=== PATIENT | female | born 1970 | race Caucasian/White ===

== ENCOUNTER 2017-03-28 19:20 | Inpatient (IN) | payer MEDICAID ==
--- NOTE | 2017-03-28 19:51 | C.PDOC ---
History Of Present Illness 47 year old female presents to the ED with complaints of abdominal pain, nausea , vomiting, and diarrhea for two days. Patient notes one episode of vomiting and multiple episodes of diarrhea since the onset of symptoms. Patient denies any dysuria, hematuria, vaginal bleeding or discharge, ingestion of unusual foods, or sick contacts. Time Seen by Provider: 03/28/17 19:27 Chief Complaint (Nursing): Abdominal Pain History Per: Patient History/Exam Limitations: no limitations Onset/Duration Of Symptoms: Days Current Symptoms Are (Timing): Still Present Severity: Moderate Location Of Pain/Discomfort: Diffuse Quality Of Discomfort: "Pain" Associated Symptoms: Nausea, Vomiting, Diarrhea. denies: Fever, Chills Recent travel outside of the [place]: No Abnormal Vaginal Bleeding: No Past Medical History Reviewed: Historical Data, Nursing Documentation, Vital Signs Vital Signs: Last Vital Signs Temp 97.8 F 03/31/17 07:23 Pulse 71 03/31/17 07:23 Resp 20 03/31/17 07:23 BP 96/58 L 03/31/17 07:23 Pulse Ox 99 03/31/17 07:23 - Medical History PMH: No Chronic Diseases Surgical History: Family History: States: No Known Family Hx - Social History Hx Tobacco Use: No Hx Alcohol Use: No Hx Substance Use: No - Immunization History Hx Tetanus Toxoid Vaccination: No Hx Influenza Vaccination: No Hx Pneumococcal Vaccination: No Review Of Systems Except As Marked, All Systems Reviewed And Found Negative. Constitutional: Negative for: Fever, Chills Cardiovascular: Negative for: Chest Pain Respiratory: Negative for: Cough, Shortness of Breath Gastrointestinal: Positive for: Nausea, Vomiting, Abdominal Pain, Diarrhea Genitourinary: Negative for: Dysuria, Hematuria, Vaginal Discharge, Vaginal Bleeding Skin: Negative for: Rash Physical Exam - Physical Exam Appears: Well, Non-toxic, Other (mildly uncomfortable, anxious) Skin: Warm, Dry Eye(s): bilateral: Normal Inspection Oral Mucosa: Moist Neck: Supple Cardiovascular: Rhythm Regular Respiratory: Normal Breath Sounds, No Rales, No Rhonchi, No Wheezing Gastrointestinal/Abdominal: Bowel Sounds, Soft, Tenderness (mild diffuse TTP greatest at suprapubic area), No Distention, No Guarding, No Rebound, Other ((- ) McBurney's, (-) Rovsing's) Back: No CVA Tenderness Extremity: Normal ROM, No Tenderness Neurological/Psych: Oriented x3 ED Course And Treatment - Laboratory Results Result Diagrams: 03/31/17 06:53 03/31/17 06:53 Lab Interpretation: Abnormal (anemia, acidosis) O2 Sat by Pulse Oximetry: 98 (room air ) Pulse Ox Interpretation: Normal - CT Scan/US CT SCAN ABD/PELVIS Other Rad Studies (CT/US): Read By Radiologist, Radiology Report Reviewed CT/US Interpretation: Accession No. : [id number]. Patient Name / ID : TALON CAMARGO / [id number]. Exam Date : 03/28/2017 22:53:20 ( Approved ). Study Comment : Sex / Age : F / 47Y. Creator : ELENA DO. Dictator : Supervisor Slate Splitting : Revolving Field Assembler : ELENA DO. Approver2 : Report Date : 03/28 23:03:00. My Comment : . [email or web address]. [facility] Division of Radiology. [address] [place] [address]. Tel. no. [phone]. . . Patient Name: RAMAN HANLEY . Pt. Address: [address] [place] [address] Rec #: [id number]. [place] [address]: Nae Lozano DO Pt Phone: Order Location: [facility]. : 1970 Female Age: 47 Order #: [id number]. Reason for exam: nausea/vomiting/diarrhea, r/o colitis. . . . . . CT Scan. . . ABD PELVIS W/O PO OR IV CONT Exam Date: 03/28/17. . This imaging exam was performed at [facility]. EXAM: CT Abdomen and Pelvis Without Intravenous Contrast. . CLINICAL HISTORY: 47 years old, female; Pain; Abdominal pain; Additional info: Nausea/vomiting/ diarrhea, R/O colitis. . TECHNIQUE: Axial computed tomography images of the abdomen and pelvis without. intravenous contrast. This CT exam was performed using one or more of the. following dose reduction techniques: automated exposure control, adjustment of. the mA and/or kV according to patient size, and/or use of iterative. reconstruction technique. Coronal and sagittal reformatted images were created and reviewed. . COMPARISON: No relevant prior studies available. . . FINDINGS: Lower thorax: The bilateral lung bases are clear. . ABDOMEN: Liver: No acute findings. Gallbladder and bile ducts: No acute finding. No calcified stones. No. intra-extrahepatic biliary ductal dilation. Pancreas: Limited evaluation secondary to the lack of intravenous contrast. Spleen: No acute findings. Adrenals: No acute findings. Kidneys and ureters: No obstructing stones. No hydronephrosis. . . PELVIS : Bladder: No acute findings. Reproductive: No acute findings. Appendix: The appendix is not definitively visualized. . ABDOMEN and PELVIS: Stomach and bowel: Significant mural thickening with adjacent inflammatory. changes identified within the colon. Presacral inflammation is also detected,. findings which taken together suggest the presence of acute colitis, for which. clinical correlation is needed. Peritoneum: As above. Lymph nodes: Limited evaluation without intravenous contrast. Vasculature: No aortic aneurysm. Bones: No acute fracture. . IMPRESSION: Findings suggestive of a pancolitis , as detailed above. . Dictated By: Elena Do MD. Dictated Date/Time: 03/28/172302. Signed By: Elena Do MD. Date Signed: 03/28/172302. Transcribed By: [facility]. Transcribe Date/Time: 03/28/172302. CHAPITO/ANNAMARIA Progress Note: Blood work, UA, UPreg ordered and reviewed. Patient given IV Ns bolus x 2. Blood work showed CO2 16, left shift, and patient still having diarrhea - CT scan abd/pelvis ordered. CT scan shows pancolitis - IV Ciprofloxacin and IV flagyl ordered. - Physician Consult Information Physician Contacted: Sada Barragan Outcome Of Conversation: Discussed patient with Dr. Barragan, he agrees with admission for pancolitis, generalized weakness, left shift, acidosis. Medical Decision Making Medical Decision Making: differential diagnoses considered: colitis, diverticulitis, appendicitis, gastroenteritis, pyelonephritis, kidney stone, ovarian torsion, PID Disposition - Disposition Disposition: HOSPITALIZED Disposition Time: 23:26 Condition: FAIR - POA Present On Arrival: None - Clinical Impression Clinical Impression: Pancolitis, Generalized weakness, Acidosis, Hypokalemia - Scribe Statement The provider has reviewed the documentation as recorded by the Scribe Rufina Meeks All medical record entries made by the Scribe were at my direction and personally dictated by me. I have reviewed the chart and agree that the record accurately reflects my personal performance of the history, physical exam, medical decision making, and the department course for this patient. I have also personally directed, reviewed, and agree with the discharge instructions and disposition. Decision To Admit - Pt Status Changed To: Hospital Disposition Of: Inpatient - Admit Certification Admit to Inpatient:: After my assessment, the patient will require hospitalization for at least two midnights. This is because of the severity of symptoms shown, intensity of services needed, and/or the medical risk in this patient being treated as an outpatient. - InPatient: Physician Admission Certification:: see notes - . Bed Request Type: Regular Admitting Physician: Sada Barragan Patient Diagnosis: Pancolitis, Generalized weakness, Acidosis, Hypokalemia
[2017-03-28] MEDS ORDERED: Sodium Chloride 0.9% 1,000 ML IV ONE ×2 (20:04→21:06)
[2017-03-28] MEDS ORDERED: Sodium Chloride 0.9% 1,000 ML ONE ×2 (20:14→21:14)
[2017-03-28 20:29] LABS: CHLORIDE 93 mmol/L (98-107); POTASSIUM 3.5 mmol/L (3.6-5.2); SODIUM 132 mmol/L (132-148)
[2017-03-28 20:31] LABS: AST/SGOT 26 U/L (14-36); BASO % 0.2 % (0.0-2.0); BILIRUBIN,TOTAL 0.6 mg/dL (0.2-1.3); CARBON DIOXIDE 16 mmol/L (22-30); GFR AFRICAN-AMERICAN > 60; HEMATOCRIT 33.3 % (34.0-47.0); LYMPH % 10.3 % (20.0-40.0); MEAN CELL VOLUME 58.9 fL (81.0-99.0); MEAN CORPUSCULAR HEMOGLOBIN 17.6 pg (27.0-31.0); MEAN CORPUSCULAR HGB CONC 29.9 g/dL (33.0-37.0); MEAN PLATELET VOLUME 9.3 fL (7.2-11.7); MONO # 0.3 K/uL (0.0-0.8); MONO % 2.8 % (0.0-10.0); RED CELL DISTRIBUTION WIDTH 20.2 % (11.5-14.5); WHITE BLOOD COUNT 10.1 K/uL (4.8-10.8)
[2017-03-28 20:32] LABS: ALB/GLOB RATIO 1.6 (1.0-2.1); ALKALINE PHOSPHATASE 102 U/L (38-126); ALT/SGPT 22 U/L (9-52); BLOOD UREA NITROGEN 9 mg/dL (7-17); CALCIUM 9.5 mg/dl (8.6-10.4); GLUCOSE,RANDOM 106 mg/dL (65-105); TOTAL PROTEIN 9.5 g/dL (6.3-8.3)
[2017-03-28 21:29] LABS: VENOUS BLOOD GAS BASE EXCESS -6.4 mmol/L (0.0-2.0); VENOUS BLOOD GAS PCO2 19 mmHg (40-60); VENOUS BLOOD PH 7.49 (7.32-7.43)
--- NOTE | 2017-03-28 23:04 | CT ---
EXAM: CT Abdomen and Pelvis Without Intravenous Contrast CLINICAL HISTORY: 47 years old, female; Pain; Abdominal pain; Additional info: Nausea/vomiting/diarrhea, R/O colitis TECHNIQUE: Axial computed tomography images of the abdomen and pelvis without intravenous contrast. This CT exam was performed using one or more of the following dose reduction techniques: automated exposure control, adjustment of the mA and/or kV according to patient size, and/or use of iterative reconstruction technique. Coronal and sagittal reformatted images were created and reviewed. COMPARISON: No relevant prior studies available. FINDINGS: Lower thorax: The bilateral lung bases are clear. ABDOMEN: Liver: No acute findings Gallbladder and bile ducts: No acute finding. No calcified stones. No intra-extrahepatic biliary ductal dilation. Pancreas: Limited evaluation secondary to the lack of intravenous contrast. Spleen: No acute findings. Adrenals: No acute findings. Kidneys and ureters: No obstructing stones. No hydronephrosis. PELVIS: Bladder: No acute findings. Reproductive: No acute findings. Appendix: The appendix is not definitively visualized. ABDOMEN and PELVIS: Stomach and bowel: Significant mural thickening with adjacent inflammatory changes identified within the colon. Presacral inflammation is also detected, findings which taken together suggest the presence of acute colitis, for which clinical correlation is needed. Peritoneum: As above. Lymph nodes: Limited evaluation without intravenous contrast. Vasculature: No aortic aneurysm. Bones: No acute fracture. IMPRESSION: Findings suggestive of a pancolitis, as detailed above.
[2017-03-28] MEDS ORDERED: metroNIDAZOLE IV 500 mg/100 ml 500 MG/100 ML BAG IV STA (23:23)
[2017-03-28] MEDS ORDERED: Ciprofloxacin 400mg/200ml D5W 400 MG/200 ML BAG IV STA (23:23)
[2017-03-28] MEDS ORDERED: Potassium Chloride 20 mEq ER Tab PO STA (23:30)
[2017-03-28] MEDS ORDERED: metroNIDAZOLE IV 500 mg/100 ml 500 MG/100 ML BAG ONE (23:33)
[2017-03-28] MEDS ORDERED: Ciprofloxacin 400mg/200ml D5W 400 MG/200 ML BAG IVPB ONE (23:33)
[2017-03-28] MEDS ORDERED: Potassium Chloride 20 mEq ER Tab PO ONE (23:45)
[2017-03-29] MEDS: Sodium Chloride 0.9% 1,000 ML IV SCH ×2 (03:34→13:36)
[2017-03-29 08:58] LABS: URINE BACTERIA RARE (<OCC); URINE BILIRUBIN NEGATIVE (NEGATIVE); URINE BLOOD 1+ (NEGATIVE); URINE COLOR Yellow (YELLOW); URINE GLUCOSE (UA) NORMAL (Normal); URINE KETONE NEGATIVE (NEGATIVE); URINE LEUKOCYTE ESTERASE 1+ Leu/uL (Negative); URINE PROTEIN NEGATIVE (NEGATIVE); URINE UROBILINOGEN NORMAL mg/dL (0.2-1.0); WBC URINE 11 /hpf (0-5)
[2017-03-29 09:01] LABS: RBC URINE 8 /hpf (0-3)
[2017-03-29] MEDS ORDERED: Pneumococcal 23-Valent Vaccine IM ONE (11:20)
[2017-03-29] MEDS: Ciprofloxacin 400mg/200ml D5W 400 MG/200 ML BAG IVPB SCH ×2 (11:29→22:50)
[2017-03-29] MEDS: metroNIDAZOLE IV 500 mg/100 ml 500 MG/100 ML BAG IVPB SCH ×2 (13:33→21:46)
[2017-03-29 17:46] LABS: CHLORIDE 99 mmol/L (98-107); SODIUM 134 mmol/L (132-148)
[2017-03-29 17:47] LABS: POTASSIUM 3.3 mmol/L (3.6-5.2)
[2017-03-29 17:49] LABS: ALB/GLOB RATIO 1.1 (1.0-2.1); ALKALINE PHOSPHATASE 74 U/L (38-126); ALT/SGPT 20 U/L (9-52); AST/SGOT 29 U/L (14-36); BILIRUBIN,TOTAL 0.7 mg/dL (0.2-1.3); BLOOD UREA NITROGEN 9 mg/dL (7-17); CARBON DIOXIDE 18 mmol/L (22-30); GFR AFRICAN-AMERICAN > 60; GLUCOSE,RANDOM 109 mg/dL (65-105); TOTAL PROTEIN 7.5 g/dL (6.3-8.3)
[2017-03-29 17:50] LABS: CALCIUM 8.4 mg/dl (8.6-10.4)
[2017-03-29 17:52] LABS: HEMATOCRIT 29.2 % (34.0-47.0); MEAN CELL VOLUME 58.8 fL (81.0-99.0); MEAN CORPUSCULAR HEMOGLOBIN 17.7 pg (27.0-31.0); MEAN CORPUSCULAR HGB CONC 30.1 g/dL (33.0-37.0); MEAN PLATELET VOLUME 9.1 fL (7.2-11.7); RED CELL DISTRIBUTION WIDTH 20.5 % (11.5-14.5); WHITE BLOOD COUNT 6.8 K/uL (4.8-10.8)
[2017-03-29] MEDS: Potassium Ch 20mEq in D5-1/2NS 1,000 ML IV SCH (18:00)
[2017-03-29] MEDS: Vancomycin 125 MG/5 ML SOLN (ORAL/RECTAL) PO SCH (21:50)
[2017-03-30] MEDS: metroNIDAZOLE IV 500 mg/100 ml 500 MG/100 ML BAG IVPB SCH ×3 (05:29→21:34)
[2017-03-30] MEDS: Potassium Ch 20mEq in D5-1/2NS 1,000 ML IV SCH ×3 (05:30→21:36)
--- NOTE | 2017-03-30 07:24 | HP ---
The patient is a 47-year-old female in the hospital complaining of nausea, vomiting, weakness. The p atient came to the hospital, advised admission. The patient denies similar episodes in the past. PHYSICAL EXAMINATION: GENERAL: The patient is awake, alert, oriented. VITAL SIGNS: Temperature 98, pulse 90. HEENT: Within normal limits. NECK: Supple. CHEST: Symmetrical. HEART: Regular. ABDOMEN: Soft. EXTREMITIES: No edema. The patient suffers from colitis. The patient will get bedrest, supportive care. Sada Abad MD cc: [id number] TT: 03/29/2017 16:19:34 en
[2017-03-30] MEDS: Ciprofloxacin 400mg/200ml D5W 400 MG/200 ML BAG IVPB SCH ×2 (10:19→23:45)
[2017-03-30] MEDS: Vancomycin 125 MG/5 ML SOLN (ORAL/RECTAL) PO SCH ×4 (10:20→21:35)
[2017-03-30 11:47] LABS: BASO % 0.3 % (0.0-2.0); HEMATOCRIT 28.1 % (34.0-47.0); LYMPH # 0.6 K/uL (1.0-4.3); LYMPH % 9.3 % (20.0-40.0); MEAN CELL VOLUME 58.1 fL (81.0-99.0); MEAN CORPUSCULAR HEMOGLOBIN 17.9 pg (27.0-31.0); MEAN CORPUSCULAR HGB CONC 30.7 g/dL (33.0-37.0); MEAN PLATELET VOLUME 9.6 fL (7.2-11.7); MONO # 0.3 K/uL (0.0-0.8); MONO % 4.2 % (0.0-10.0); PLATELET COUNT 246 K/uL (130-400); RED CELL DISTRIBUTION WIDTH 20.6 % (11.5-14.5)
[2017-03-30 11:53] LABS: CHLORIDE 100 mmol/L (98-107)
[2017-03-30 11:54] LABS: POTASSIUM 3.2 mmol/L (3.6-5.2); SODIUM 133 mmol/L (132-148)
[2017-03-30 11:56] LABS: ALB/GLOB RATIO 1.1 (1.0-2.1); AST/SGOT 28 U/L (14-36); BILIRUBIN,TOTAL 0.5 mg/dL (0.2-1.3); BLOOD UREA NITROGEN 7 mg/dL (7-17); CARBON DIOXIDE 19 mmol/L (22-30); GFR AFRICAN-AMERICAN > 60; TOTAL PROTEIN 7.2 g/dL (6.3-8.3)
[2017-03-30 11:57] LABS: ALKALINE PHOSPHATASE 60 U/L (38-126); ALT/SGPT 22 U/L (9-52); CALCIUM 8.6 mg/dl (8.6-10.4); GLUCOSE,RANDOM 104 mg/dL (65-105)
[2017-03-30 12:38] LABS: NEUTROPHIL 80 % (50-75); TOTAL CELLS COUNTED 100
--- NOTE | 2017-03-30 12:50 | CP.PCM.CON ---
History of Present Illness - History of Present Illness History of Present Illness: 47 year old female presents to the ED with complaints of abdominal pain, nausea , vomiting, and diarrhea for two days. Patient notes one episode of vomiting and multiple episodes of diarrhea since the onset of symptoms. Patient denies any dysuria, hematuria, vaginal bleeding or discharge, ingestion of unusual foods, or sick contacts. CT shows severe vale colitis need GI eval r/o occult malignancy Surgical History: Family History: States: Unknown Family Hx Review of Systems - Constitutional Constitutional: As Per HPI, Malaise - EENT Eyes: absent: As Per HPI, Blind Spots, Blurred Vision, Change in Vision, Decreased Night Vision, Diplopia, Discharge, Dry Eye, Exophthalmos, Floaters, Irritation, Itchy Eyes, Loss of Peripheral Vision, Pain, Photophobia, Requires Corrective Lenses, Sees Flashes, Spots in Vision, Tunnel Vision, Other Visual Disturbances, Loss of Vision, Other Ears: absent: As Per HPI, Decreased Hearing, Ear Discharge, Ear Pain, Tinnitus, Abnormal Hearing, Disequilibrium, Dizziness, Other Nose/Mouth/Throat: absent: As Per HPI, Epistaxis, Nasal Congestion, Nasal Discharge, Nasal Obstruction, Nasal Trauma, Nose Pain, Post Nasal Drip, Sinus Pain, Sinus Pressure, Bleeding Gums, Change in Voice, Dental Pain, Dry Mouth, Dysphagia, Halitosis, Hoarsness, Lip Swelling, Mouth Lesions, Mouth Pain, Odynophagia, Sore Throat, Throat Swelling, Tongue Swelling, Facial Pain, Neck Pain, Neck Mass, Other - Breasts Breasts: absent: As Per HPI, Change in Shape, Mass, Pain, Nipple Discharge, Nipple Inversion, Skin Changes, Swelling, Other - Cardiovascular Cardiovascular: absent: As Per HPI, Acrocyanosis, Chest Pain, Chest Pain at Rest , Chest Pain with Activity, Claudication, Diaphoresis, Dyspnea, Dyspnea on Exertion, Edema, Irregular Heart Rhythm, Pain Radiating to Arm/Neck/Jaw, Leg Edema, Leg Ulcers, Lightheadedness, Orthopnea, Palpitations, Paroxysmal Nocturnal Dyspnea, Pedal Edema, Radiating Pain, Rapid Heart Rate, Slow Heart Rate, Syncope, Other - Respiratory Respiratory: absent: As Per HPI, Cough, Dyspnea, Hemoptysis, Dyspnea on Exertion , Wheezing, Snoring, Stridor, Pain on Inspiration, Chest Congestion, Excessive Mucous Production, Change in Mucous Color, Pain with Coughing, Other - Gastrointestinal Gastrointestinal: As Per HPI - Genitourinary Genitourinary: absent: As Per HPI, Change in Urinary Stream, Difficulty Urinating, Dysuria, Flank Pain, Hematuria, Pyuria, Nocturia, Urinary Incontinence, Urinary Frequency, Urinary Hesitance, Urinary Urgency, Voiding Freq/Small Amts, Freq UTI, Hx Renal/Bladder Calculi, Hx /Renal Surgery, Bladder Distension, Other - Reproductive: Female Reproductive:Female: absent: As Per HPI, Amenorrhea, Amenorrhea/ Control, Currently Menstual, Cycle <21 Days, Cycle >35 Days, Cycle Variable, Menses 1-7 Days, Menses >/= 8 Days, Menses Variable, Cycle > 4 Weeks Between, No Menses for 6 Months, Heavy Menses, Light Menses, Normal Menses, Spotting Between Cycles , S/P Hysterectomy, Menopausal, Post Menopausal, Premenarche, Abnormal Vaginal Bleeding, Dysmenorrhea, Dyspareunia, Genital Lesions, Genital Pruritis, Pelvic Pain, Prolapse Symptoms, Sexual Dysfunction, Vaginal Discharge, Vaginal Dryness , Vaginal Odor, Vaginal Pruritis, Other - Menstruation Menstruation: absent: As Per HPI, Amenorrhea, Amenorrhea/ Control, Currently Menstual, Cycle <21 Days, Cycle >35 Days, Cycle Variable, Menses 1-7 Days, Menses >/= 8 Days, Menses Variable, Cycle > 4 Weeks Between, No Menses for 6 Months, Heavy Menses, Light Menses, Normal Menses, Spotting Between Cycles , S/P Hysterectomy, Menopausal, Post Menopausal, Premenarche, Abnormal Vaginal Bleeding, Dysmenorrhea, Other - Musculoskeletal Musculoskeletal: absent: As Per HPI, Abnormal Gait, Arthralgias, Atrophy, Back Pain, Deformity, Joint Swelling, Limited Range of Motion, Loss of Height, Muscle Cramps, Muscle Weakness, Myalgias, Neck Pain, Numbness, Radiating Pain into Limb, Stiffness, Tingling, Other - Integumentary Integumentary: absent: As Per HPI, Acne, Alopecia, Bleeding Lesions, Change in Hair, Change in Nails, Change in Pigmentation, Changing Lesions, Dry Skin, Erythema, Furuncle, Hirsutism, Lesions, New Lesions, Non-Healing Lesions, Photosensitivity, Pruritus, Rash, Skin Pain, Skin Ulcer, Sores, Striae, Swelling , Unusual Bruising, Wounds, Jaundice, Other - Neurological Neurological: absent: As Per HPI, Abnormal Gait, Abnormal Hearing, Abnormal Movements, Abnormal Speech, Behavioral Changes, Burning Sensations, Confusion, Convulsions, Disequilibrium, Dizziness, Numbness, Focal Weakness, Frequent Falls , Headaches, Lack of Coordination, Loss of Vision, Memory Loss, Paresthesias, Radicular Pain, Restless Legs, Sensory Deficit, Syncope, Tingling, Tremor, Vertigo, Weakness, Other Visual Disturbances, Other - Psychiatric Psychiatric: absent: As Per HPI, Abnormal Sleep Pattern, Anhedonia, Anxiety, Auditory Hallucinations, Behavioral Changes, Change in Appetite, Change in Libido, Confusion, Depression, Difficulty Concentrating, Hallucinations, Homicidal Ideation, Hopelessness, Irritability, Memory Loss, Mood Swings, Panic Attacks, Paranoia, Suicidal Ideation, Visual Hallucinations, Tactile Hallucinations, Other - Endocrine Endocrine: absent: As Per HPI, Change in Body Appearance, Change in Libido, Cold Intolorance, Deepening of Voice, Excessive Sweating, Fatigue, Flushing, Heat Intolorance, Increase in Ring/Shoe/Hat Size, Palpitations, Polydipsia, Polyphagia, Polyuria, Other - Hematologic/Lymphatic Hematologic: absent: As Per HPI, Easy Bleeding, Easy Bruising, Lymphadenopathy, Other Past Patient History - Infectious Disease Hx of Infectious Diseases: None - Past Medical History & Family History Past Medical History?: Yes - Past Social History Smoking Status: Never Smoked - MUSCULOSKELETAL/RHEUMATOLOGICAL Hx Back Pain: Yes Hx Falls: No - PSYCHIATRIC Hx Substance Use: No - SURGICAL HISTORY Hx Surgeries: Yes Hx Section: Yes (1) - ANESTHESIA Hx Anesthesia: Yes Hx Anesthesia Reactions: No Hx Malignant Hyperthermia: No Has any member of the family had a problem w/ anesthesia?: No Meds Allergies/Adverse Reactions: Allergies Allergy/AdvReac Type Severity Reaction Status Date / Time No Known Allergies Allergy Verified 03/28/17 19:29 - Medications Medications: Current Medications Acetaminophen (Tylenol 325mg Tab) 650 mg PO Q6 PRN PRN Reason: pain Last Admin: 03/29/17 22:58 Dose: 650 mg Ciprofloxacin (Cipro 400mg/200ml Dsw) 400 mg in 200 mls @ 133 mls/hr IVPB Q12H [facility] Last Admin: 05/08/17 10:19 Dose: 133 mls/hr Metronidazole (Flagyl) 500 mg in 100 mls @ 100 mls/hr IVPB Q8 [facility] Last Admin: 03/30/17 05:29 Dose: 100 mls/hr Potassium Chloride/Dextrose/Sod Cl (Potassium Chl 20 Meq In D5-1/2ns) 1,000 mls @ 100 mls/hr IV .Q10H [facility] Last Admin: 03/30/17 05:30 Dose: Not Given Vancomycin HCl (Vancocin (Oral Or Rectal Use)) 250 mg PO QID [facility] Last Admin: 03/30/17 10:20 Dose: 250 mg Physical Exam - Constitutional Appears: Non-toxic, Chronically Ill - Head Exam Head Exam: NORMOCEPHALIC - Eye Exam Eye Exam: PERRL. absent: Scleral icterus - ENT Exam ENT Exam: Mucous Membranes Dry, Normal External Ear Exam - Respiratory Exam Respiratory Exam: Decreased Breath Sounds, Clear to Auscultation Bilateral - Cardiovascular Exam Cardiovascular Exam: REGULAR RHYTHM, +S1, +S2 - GI/Abdominal Exam GI & Abdominal Exam: Diminished Bowel Sounds, Soft. absent: Normal Bowel Sounds , Tenderness - Rectal Exam Rectal Exam: Deferred - Exam Exam: NORMAL INSPECTION - Extremities Exam Extremities exam: Negative for: pedal edema - Back Exam Back exam: absent: CVA tenderness (L), CVA tenderness (R) - Neurological Exam Neurological exam: Alert, CN II-XII Intact, Oriented x3, Reflexes Normal - Psychiatric Exam Psychiatric exam: Normal Mood - Skin Skin Exam: Dry Results - Vital Signs Recent Vital Signs: Last Vital Signs Temp 98.9 F 03/30/17 08:00 Pulse 78 03/30/17 08:00 Resp 20 03/30/17 08:00 BP 103/68 03/30/17 08:00 Pulse Ox 100 03/30/17 08:00 - Labs Result Diagrams: 03/30/17 11:33 03/30/17 11:33 Labs: Laboratory Results - last 24 hr 03/29/17 03/29/17 03/29/17 17:32 17:32 20:09 WBC 6.8 RBC 4.97 Hgb 8.8 L Hct 29.2 L MCV 58.8 L MCH 17.7 L MCHC 30.1 L RDW 20.5 H Plt Count 264 MPV 9.1 Neut % (Auto) Lymph % (Auto) Dod[place]idge % (Auto) Eos % (Auto) Baso % (Auto) Neut # Lymph # Doddridge # Eos # Baso # Neutrophils % (Manual) Band Neutrophils % Lymphocytes % (Manual) Monocytes % (Manual) Platelet Estimate Hypochromasia (manual) Anisocytosis (manual) Microcytosis (manual) Ovalocytes Sodium 134 Potassium 3.3 L Chloride 99 Carbon Dioxide 18 L Anion Gap 20 BUN 9 Creatinine 0.9 Est GFR ( Amer) > 60 Est GFR (Non-Af Amer) > 60 Random Glucose 109 H Calcium 8.4 L Total Bilirubin 0.7 AST 29 ALT 20 Alkaline Phosphatase 74 Total Protein 7.5 Albumin 4.0 Globulin 3.5 Albumin/Globulin Ratio 1.1 C. difficile Ag & Toxin Negative 03/30/17 03/30/17 11:33 11:33 WBC 6.0 RBC 4.83 Hgb 8.6 L Hct 28.1 L MCV 58.1 L MCH 17.9 L MCHC 30.7 L RDW 20.6 H Plt Count 246 MPV 9.6 Neut % (Auto) 86.2 H Lymph % (Auto) 9.3 L Doddridge % (Auto) 4.2 Eos % (Auto) 0.0 Baso % (Auto) 0.3 Neut # 5.1 Lymph # 0.6 L Doddridge # 0.3 Eos # 0.0 Baso # 0.0 Neutrophils % (Manual) 80 H Band Neutrophils % 8 H Lymphocytes % (Manual) 4 L Monocytes % (Manual) 8 Platelet Estimate Normal Hypochromasia (manual) Moderate Anisocytosis (manual) Moderate Microcytosis (manual) Moderate Ovalocytes Slight Sodium 133 Potassium 3.2 L Chloride 100 Carbon Dioxide 19 L Anion Gap 17 BUN 7 Creatinine 0.7 Est GFR ( Amer) > 60 Est GFR (Non-Af Amer) > 60 Random Glucose 104 Calcium 8.6 Total Bilirubin 0.5 AST 28 ALT 22 Alkaline Phosphatase 60 Total Protein 7.2 Albumin 3.8 Globulin 3.4 Albumin/Globulin Ratio 1.1 C. difficile Ag & Toxin Assessment & Plan (1) Anemia Status: Acute (2) Anemia Status: Acute (3) Acidosis Status: Acute (4) Hypokalemia Status: Acute (5) Pancolitis Status: Acute
[2017-03-30] MEDS ORDERED: Potassium Chloride 20 mEq ER Tab PO ONE (14:50)
--- NOTE | 2017-03-30 17:08 | CP.PCM.PN ---
Subjective - Date & Time of Evaluation Date of Evaluation: 03/30/17 Time of Evaluation: 10:00 - Subjective Subjective: PGY2 on medicine Dr. Barragan service: Pt seen and examined at bedside this morning. Pt has TMax 102.1 in past 24 hours. Pt reports multiple watery BM overnight that she lost count. Tolerating liquid diet. Patient also complains diffuse abdominal pain. Denied n/v. Objective - Vital Signs/Intake and Output Vital Signs (last 24 hours): Temp Pulse Resp BP Pulse Ox 98.5 F 86 20 95/59 L 98 03/30/17 15:00 03/30/17 15:00 03/30/17 15:00 03/30/17 15:00 03/30/17 15:00 Intake and Output: 03/30/17 03/30/17 06:59 18:59 Intake Total 920 1200 Balance 920 1200 - Medications Medications: Current Medications Acetaminophen (Tylenol 325mg Tab) 650 mg PO Q6 PRN PRN Reason: pain Last Admin: 03/29/17 22:58 Dose: 650 mg Ciprofloxacin (Cipro 400mg/200ml Dsw) 400 mg in 200 mls @ 133 mls/hr IVPB Q12H [facility] Last Admin: 03/30/17 10:19 Dose: 133 mls/hr Metronidazole (Flagyl) 500 mg in 100 mls @ 100 mls/hr IVPB Q8 [facility] Last Admin: 03/30/17 13:17 Dose: 100 mls/hr Potassium Chloride/Dextrose/Sod Cl (Potassium Chl 20 Meq In D5-1/2ns) 1,000 mls @ 100 mls/hr IV .Q10H [facility] Last Admin: 03/30/17 13:19 Dose: 100 mls/hr Vancomycin HCl (Vancocin (Oral Or Rectal Use)) 250 mg PO QID [facility] Last Admin: 03/30/17 13:21 Dose: 250 mg - Labs Labs: 03/30/17 11:33 03/30/17 11:33 - Constitutional Appears: Non-toxic, No Acute Distress - Head Exam Head Exam: NORMAL INSPECTION, NORMOCEPHALIC - Eye Exam Eye Exam: Normal appearance Pupil Exam: NORMAL ACCOMODATION - ENT Exam ENT Exam: Mucous Membranes Moist - Respiratory Exam Respiratory Exam: Clear to Ausculation Bilateral, NORMAL BREATHING PATTERN. absent: Rhonchi, Wheezes - Cardiovascular Exam Cardiovascular Exam: REGULAR RHYTHM, +S1, +S2. absent: Gallop, Rubs - GI/Abdominal Exam GI & Abdominal Exam: Guarding (mild), Tenderness (diffuse), Normal Bowel Sounds. absent: Rigid, Soft - Neurological Exam Neurological Exam: Alert, Awake, Oriented x3 - Psychiatric Exam Psychiatric exam: Normal Mood - Skin Skin Exam: Dry Assessment and Plan - Assessment and Plan (Free Text) Assessment: Abdominal pain Likely secondary to pancolitis per CT. Negative C.diff. ID Dr. Mireles consulted, help appreciated. GI Dr. Pizarro consulted, help appreciated. Cipro 400mg IV q12H started on 03/29. Flagyl 500mg IV q8H started on 03/29. Vancomycin 250mg PO QID started on 03/29. NPO per Dr. Pizarro for EGD tomorrow. F/U stool culture and parasite study. F/U FOBT. Hypokalemia 3.2 today. KCl 20meq in D5 1/2NS @ 100ml/hr. K-dur 40meq given once. F/U CMP AM. Prophylactic measure Protonix, SCD.
[2017-03-30 22:11] LABS: INR 1.3
[2017-03-31] MEDS: Potassium Ch 20mEq in D5-1/2NS 1,000 ML IV SCH ×2 (00:53→10:38)
[2017-03-31] MEDS: metroNIDAZOLE IV 500 mg/100 ml 500 MG/100 ML BAG IVPB SCH ×3 (05:25→21:29)
[2017-03-31 07:13] LABS: BASO % 0.4 % (0.0-2.0); EOS % 0.2 % (0.0-4.0); HEMATOCRIT 26.4 % (34.0-47.0); LYMPH # 1.1 K/uL (1.0-4.3); LYMPH % 29.7 % (20.0-40.0); MEAN CELL VOLUME 58.5 fL (81.0-99.0); MEAN CORPUSCULAR HEMOGLOBIN 17.8 pg (27.0-31.0); MEAN CORPUSCULAR HGB CONC 30.5 g/dL (33.0-37.0); MEAN PLATELET VOLUME 9.1 fL (7.2-11.7); MONO # 0.3 K/uL (0.0-0.8); MONO % 8.5 % (0.0-10.0); RED CELL DISTRIBUTION WIDTH 20.9 % (11.5-14.5); WHITE BLOOD COUNT 3.8 K/uL (4.8-10.8)
[2017-03-31 08:03] LABS: CHLORIDE 102 mmol/L (98-107); POTASSIUM 3.3 mmol/L (3.6-5.2); SODIUM 135 mmol/L (132-148)
[2017-03-31 08:05] LABS: GFR AFRICAN-AMERICAN > 60
[2017-03-31 08:06] LABS: ALB/GLOB RATIO 1.1 (1.0-2.1); ALKALINE PHOSPHATASE 57 U/L (38-126); ALT/SGPT 24 U/L (9-52); AST/SGOT 22 U/L (14-36); BILIRUBIN,TOTAL 0.4 mg/dL (0.2-1.3); BLOOD UREA NITROGEN 6 mg/dL (7-17); CARBON DIOXIDE 21 mmol/L (22-30); GLUCOSE,RANDOM 89 mg/dL (65-105); TOTAL PROTEIN 6.7 g/dL (6.3-8.3)
[2017-03-31 08:07] LABS: CALCIUM 8.3 mg/dl (8.6-10.4)
[2017-03-31] MEDS ORDERED: Propofol 10 mg/ml Inj (20 ML) ONE (10:55)
[2017-03-31] MEDS ORDERED: Phytonadione 10 mg/ml Inj (Adult) SC STA (11:03)
--- NOTE | 2017-03-31 11:04 | CP.PCM.PN ---
Subjective - Date & Time of Evaluation Date of Evaluation: 03/31/17 Time of Evaluation: 07:00 - Subjective Subjective: s/p egd dr gorman on board iv rx in progress Objective - Vital Signs/Intake and Output Vital Signs (last 24 hours): Temp Pulse Resp BP Pulse Ox 97.8 F 71 20 96/58 L 100 03/31/17 10:54 03/31/17 10:54 03/31/17 10:54 03/31/17 10:54 03/31/17 10:54 Intake and Output: 03/31/17 03/31/17 06:59 18:59 Intake Total 1200 850 Balance 1200 850 - Medications Medications: Current Medications Acetaminophen (Tylenol 325mg Tab) 650 mg PO Q6 PRN PRN Reason: pain Last Admin: 03/29/17 22:58 Dose: 650 mg Bisacodyl (Dulcolax) 10 mg PO ONCE ONE Stop: 03/31/17 17:01 Ciprofloxacin (Cipro 400mg/200ml Dsw) 400 mg in 200 mls @ 133 mls/hr IVPB Q12H [facility] Last Admin: 03/30/17 23:45 Dose: 133 mls/hr Metronidazole (Flagyl) 500 mg in 100 mls @ 100 mls/hr IVPB Q8 [facility] Last Admin: 03/31/17 05:25 Dose: 100 mls/hr Potassium Chloride/Dextrose/Sod Cl (Potassium Chl 20 Meq In D5-1/2ns) 1,000 mls @ 100 mls/hr IV .Q10H [facility] Last Admin: 03/31/17 00:53 Dose: 100 mls/hr Potassium Chloride (Potassium Chloride 20 Meq/100 Ml) 20 meq in 100 mls @ 50 mls/hr IVPB ONCE ONE Stop: 03/31/17 11:12 Metoclopramide HCl (Reglan) 5 mg IVP ACHS [facility] Pantoprazole Sodium (Protonix Inj) 40 mg IVP DAILY [facility] Polyethylene Glycol/Electrolytes (Golytely) 4,000 ml PO ONCE ONE Stop: 03/31/17 13:31 Vancomycin HCl (Vancocin (Oral Or Rectal Use)) 250 mg PO QID [facility] Last Admin: 03/30/17 21:35 Dose: 250 mg - Labs Labs: 03/31/17 06:53 03/31/17 06:53 PT 14.4 SECONDS (9.7-12.2) H 03/30/17 21:43 INR 1.3 03/30/17 21:43 APTT 27 SECONDS (21-34) 03/30/17 21:43 - Constitutional Appears: Non-toxic, Chronically Ill - Head Exam Head Exam: NORMOCEPHALIC - Eye Exam Eye Exam: absent: Scleral icterus - ENT Exam ENT Exam: Mucous Membranes Dry - Neck Exam Neck Exam: absent: Lymphadenopathy - Respiratory Exam Respiratory Exam: Decreased Breath Sounds - Cardiovascular Exam Cardiovascular Exam: REGULAR RHYTHM - GI/Abdominal Exam GI & Abdominal Exam: Distended, Soft Assessment and Plan (1) Anemia Status: Acute (2) Anemia Status: Acute (3) Acidosis Status: Acute (4) Hypokalemia Status: Acute (5) Pancolitis Status: Acute
[2017-03-31] MEDS: Vancomycin 125 MG/5 ML SOLN (ORAL/RECTAL) PO SCH ×4 (11:13→22:44)
--- NOTE | 2017-03-31 11:20 | CP.PCM.PN ---
Subjective - Date & Time of Evaluation Date of Evaluation: 03/31/17 Time of Evaluation: 12:30 - Subjective Subjective: Medicine Progress Note Patient seen and examined after EGD this morning. The patient states that she feels well and is no longer complaining of abdominal pain. Patient is eating a liquid diet and is tolerating it. She admits that she is hungry and wishes she could have a normal diet. Patient was informed that she is scheduled for a colonscopy tomorrow and will be NPO after midnight. Patient continues to have loose, watery bowel movements. She denies blood in stool today. All other ROS negative at this time. Objective - Vital Signs/Intake and Output Vital Signs (last 24 hours): Temp Pulse Resp BP Pulse Ox 97.8 F 71 20 96/58 L 100 03/31/17 10:54 03/31/17 10:54 03/31/17 10:54 03/31/17 10:54 03/31/17 10:54 Intake and Output: 03/31/17 03/31/17 06:59 18:59 Intake Total 1200 850 Balance 1200 850 - Medications Medications: Current Medications Acetaminophen (Tylenol 325mg Tab) 650 mg PO Q6 PRN PRN Reason: pain Last Admin: 03/29/17 22:58 Dose: 650 mg Bisacodyl (Dulcolax) 10 mg PO ONCE ONE Stop: 03/31/17 17:01 Ciprofloxacin (Cipro 400mg/200ml Dsw) 400 mg in 200 mls @ 133 mls/hr IVPB Q12H [facility] Last Admin: 03/30/17 23:45 Dose: 133 mls/hr Metronidazole (Flagyl) 500 mg in 100 mls @ 100 mls/hr IVPB Q8 [facility] Last Admin: 03/31/17 05:25 Dose: 100 mls/hr Potassium Chloride/Dextrose/Sod Cl (Potassium Chl 20 Meq In D5-1/2ns) 1,000 mls @ 100 mls/hr IV .Q10H [facility] Last Admin: 03/31/17 00:53 Dose: 100 mls/hr Metoclopramide HCl (Reglan) 5 mg IVP ACHS [facility] Pantoprazole Sodium (Protonix Inj) 40 mg IVP DAILY [facility] Polyethylene Glycol/Electrolytes (Golytely) 4,000 ml PO ONCE ONE Stop: 03/31/17 13:31 Vancomycin HCl (Vancocin (Oral Or Rectal Use)) 250 mg PO QID [facility] Last Admin: 03/31/17 11:13 Dose: Not Given - Labs Labs: 03/31/17 06:53 03/31/17 06:53 PT 14.4 SECONDS (9.7-12.2) H 03/30/17 21:43 INR 1.3 03/30/17 21:43 APTT 27 SECONDS (21-34) 03/30/17 21:43 - Constitutional Appears: Non-toxic, No Acute Distress - Head Exam Head Exam: ATRAUMATIC, NORMOCEPHALIC - Eye Exam Eye Exam: Normal appearance - ENT Exam ENT Exam: Mucous Membranes Moist, Normal Exam - Neck Exam Neck Exam: Normal Inspection - Respiratory Exam Respiratory Exam: Clear to Ausculation Bilateral, NORMAL BREATHING PATTERN. absent: Rhonchi, Wheezes, Respiratory Distress - Cardiovascular Exam Cardiovascular Exam: REGULAR RHYTHM, +S1, +S2 - GI/Abdominal Exam GI & Abdominal Exam: Soft, Normal Bowel Sounds. absent: Tenderness - Extremities Exam Extremities Exam: Normal Inspection - Neurological Exam Neurological Exam: Alert, Awake, CN II-XII Intact, Oriented x3 - Psychiatric Exam Psychiatric exam: Normal Affect, Normal Mood - Skin Skin Exam: Dry, Intact, Normal Color, Warm Assessment and Plan - Assessment and Plan (Free Text) Assessment: Abdominal pain Likely secondary to pancolitis per CT scan. Negative C.diff. ID Dr. Mireles consulted, help appreciated. GI Dr. Pizarro consulted, help appreciated. Cipro 400mg IV q12H started on 03/29. Flagyl 500mg IV q8H started on 03/29. Vancomycin 250mg PO QID started on 03/29. F/U stool culture and parasite study. FOBT positive GI Bleed FOBT positive Hgb 8.0 today, monitor CBC daily Protonix 40mg IV daily GI Dr Pizarro consulted- patient scheduled for EGD today. Results showed acute gastritis and small hiatal hernia, no active bleeding. Patient may be advanced to liquid diet after procedure, then NPO past midnight for colonoscopy tomorrow. Hypokalemia 3.3 today. KCl 20meq in D5 1/2NS @ 100ml/hr. K-dur 40meq given once. F/U CMP AM. Prophylactic measure Protonix, SCD. No chemical anticoagulation due to anemia/GI bleed Management per Dr Barragan
[2017-03-31] MEDS: Ciprofloxacin 400mg/200ml D5W 400 MG/200 ML BAG IVPB SCH ×2 (12:12→22:46)
[2017-03-31] MEDS ORDERED: Peg-Electrolyte Oral Soln 4L (Golytely) PO ONE (13:30)
[2017-03-31] MEDS ORDERED: Bisacodyl 5mg EC Tab PO ONE ×2 (17:00→22:04)
[2017-04-01] MEDS: Potassium Ch 20mEq in D5-1/2NS 1,000 ML IV SCH ×2 (01:25→04:15)
[2017-04-01] MEDS: metroNIDAZOLE IV 500 mg/100 ml 500 MG/100 ML BAG IVPB SCH ×2 (05:40→15:40)
[2017-04-01] MEDS: Vancomycin 125 MG/5 ML SOLN (ORAL/RECTAL) PO SCH ×2 (10:00→14:00)
--- NOTE | 2017-04-01 10:47 | CP.PCM.PN ---
Subjective - Date & Time of Evaluation Date of Evaluation: 04/01/17 Time of Evaluation: 09:00 - Subjective Subjective: Medicine Progress Note Patient seen and examined. Patient states that she feels better today but is hungry. She is NPO for colonoscopy this afternoon at 1pm. The patient completed the golytly prep. She denies blood per rectum. Denies fever, chills , nausea, vomiting, abdominal pain, chest pain, and shortness of breath. Objective - Vital Signs/Intake and Output Vital Signs (last 24 hours): Temp Pulse Resp BP Pulse Ox 97.8 F 75 20 107/71 99 04/01/17 07:00 04/01/17 07:00 04/01/17 07:00 04/01/17 07:00 04/01/17 07:00 Intake and Output: 04/01/17 04/01/17 06:59 18:59 Intake Total 2270 Balance 2270 - Medications Medications: Current Medications Acetaminophen (Tylenol 325mg Tab) 650 mg PO Q6 PRN PRN Reason: pain Last Admin: 03/29/17 22:58 Dose: 650 mg Ciprofloxacin (Cipro 400mg/200ml Dsw) 400 mg in 200 mls @ 133 mls/hr IVPB Q12H [facility] Last Admin: 03/31/17 22:46 Dose: 133 mls/hr Metronidazole (Flagyl) 500 mg in 100 mls @ 100 mls/hr IVPB Q8 [facility] Last Admin: 04/01/17 05:40 Dose: 100 mls/hr Potassium Chloride/Dextrose/Sod Cl (Potassium Chl 20 Meq In D5-1/2ns) 1,000 mls @ 100 mls/hr IV .Q10H [facility] Last Admin: 04/01/17 04:15 Dose: Not Given Metoclopramide HCl (Reglan) 5 mg IVP ACHS [facility] Last Admin: 04/01/17 06:30 Dose: 5 mg Pantoprazole Sodium (Protonix Inj) 40 mg IVP DAILY [facility] Last Admin: 03/31/17 12:10 Dose: 40 mg Vancomycin HCl (Vancocin (Oral Or Rectal Use)) 250 mg PO QID [facility] Last Admin: 03/31/17 22:44 Dose: 250 mg - Labs Labs: 03/31/17 06:53 03/31/17 06:53 PT 14.4 SECONDS (9.7-12.2) H 03/30/17 21:43 INR 1.3 03/30/17 21:43 APTT 27 SECONDS (21-34) 03/30/17 21:43 - Constitutional Appears: Non-toxic, No Acute Distress - Head Exam Head Exam: ATRAUMATIC, NORMOCEPHALIC - Eye Exam Eye Exam: EOMI, Normal appearance - ENT Exam ENT Exam: Mucous Membranes Moist - Neck Exam Neck Exam: Normal Inspection - Respiratory Exam Respiratory Exam: Clear to Ausculation Bilateral, NORMAL BREATHING PATTERN. absent: Rhonchi, Wheezes, Respiratory Distress - Cardiovascular Exam Cardiovascular Exam: REGULAR RHYTHM, +S1, +S2 - GI/Abdominal Exam GI & Abdominal Exam: Soft, Normal Bowel Sounds. absent: Tenderness - Extremities Exam Extremities Exam: Normal Inspection - Back Exam Back Exam: NORMAL INSPECTION - Neurological Exam Neurological Exam: Alert, Awake, CN II-XII Intact, Normal Gait, Oriented x3 - Psychiatric Exam Psychiatric exam: Normal Affect, Normal Mood - Skin Skin Exam: Dry, Intact, Normal Color, Warm Assessment and Plan - Assessment and Plan (Free Text) Assessment: Abdominal pain Resolved, Likely secondary to pancolitis per CT scan. Negative C.diff. Negative HIV. Stool culture and parasite study negative. ID Dr. Mireles consulted, help appreciated. GI Dr. Pizarro consulted, help appreciated. Cipro 400mg IV q12H started on 03/29. Flagyl 500mg IV q8H started on 03/29. Vancomycin 250mg PO QID started on 03/29. FOBT positive on admission GI Bleed FOBT positive Hgb 8.0 on 03/31, monitor CBC daily Protonix 40mg IV daily GI Dr Pizarro consulted EGD Results showed acute gastritis and small hiatal hernia, no active bleeding. Scheduled for colonoscopy today. Patient may be discharged home per Dr Barragan pending colonoscopy results. Hypokalemia 3.3 yday. Pending CMP today. KCl 20meq in D5 1/2NS @ 100ml/hr. K-dur 40meq given once. F/U CMP AM. Prophylactic measure Protonix, SCD. No chemical anticoagulation due to anemia/GI bleed Management per Dr Barragan
[2017-04-01] MEDS ORDERED: Propofol 10 mg/ml Inj (20 ML) ONE (12:06)
[2017-04-01] MEDS ORDERED: Lactated Ringer's 500 ML IV SCH (12:15)
[2017-04-01 12:38] VITALS: O2SAT 100
--- NOTE | 2017-04-01 15:19 | CP.PCM.PN ---
Subjective - Date & Time of Evaluation Date of Evaluation: 04/01/17 Time of Evaluation: 08:00 - Subjective Subjective: events noted HgB low IV rx in - progress cultures neg Objective - Vital Signs/Intake and Output Vital Signs (last 24 hours): Temp Pulse Resp BP Pulse Ox 97.7 F 67 14 101/48 L 100 04/01/17 12:20 04/01/17 12:50 04/01/17 12:50 04/01/17 12:50 04/01/17 12:50 Intake and Output: 04/01/17 04/01/17 06:59 18:59 Intake Total 2270 200 Balance 2270 200 - Medications Medications: Current Medications Acetaminophen (Tylenol 325mg Tab) 650 mg PO Q6 PRN PRN Reason: pain Last Admin: 03/29/17 22:58 Dose: 650 mg Ciprofloxacin (Cipro 400mg/200ml Dsw) 400 mg in 200 mls @ 133 mls/hr IVPB Q12H [facility] Last Admin: 03/31/17 22:46 Dose: 133 mls/hr Metronidazole (Flagyl) 500 mg in 100 mls @ 100 mls/hr IVPB Q8 [facility] Last Admin: 04/01/17 05:40 Dose: 100 mls/hr Potassium Chloride/Dextrose/Sod Cl (Potassium Chl 20 Meq In D5-1/2ns) 1,000 mls @ 100 mls/hr IV .Q10H [facility] Last Admin: 04/01/17 04:15 Dose: Not Given Lactated Ringer's (Lactated Ringer's 500ml) 500 mls @ 75 mls/hr IV .Q6H40M [facility] Metoclopramide HCl (Reglan) 5 mg IVP ACHS [facility] Last Admin: 04/01/17 06:30 Dose: 5 mg Pantoprazole Sodium (Protonix Inj) 40 mg IVP DAILY [facility] Last Admin: 03/31/17 12:10 Dose: 40 mg Vancomycin HCl (Vancocin (Oral Or Rectal Use)) 250 mg PO QID [facility] Last Admin: 03/31/17 22:44 Dose: 250 mg - Labs Labs: 03/31/17 06:53 03/31/17 06:53 PT 14.4 SECONDS (9.7-12.2) H 03/30/17 21:43 INR 1.3 03/30/17 21:43 APTT 27 SECONDS (21-34) 03/30/17 21:43 - Constitutional Appears: Non-toxic, Cachectic, Chronically Ill - Head Exam Head Exam: NORMOCEPHALIC - Eye Exam Eye Exam: PERRL. absent: Scleral icterus - ENT Exam ENT Exam: Mucous Membranes Dry - Neck Exam Neck Exam: absent: Lymphadenopathy - Respiratory Exam Respiratory Exam: Decreased Breath Sounds, Rhonchi Assessment and Plan (1) Anemia Status: Acute (2) Anemia Status: Acute (3) Acidosis Status: Acute (4) Hypokalemia Status: Acute (5) Pancolitis Status: Acute
[2017-04-01] MEDS: Ciprofloxacin 400mg/200ml D5W 400 MG/200 ML BAG IVPB SCH (15:37)
[2017-04-01 16:18] VITALS: BP 122/69; PULSE 72; RESP 20; TEMP 97.9
--- NOTE | 2017-04-03 23:36 | CON ---
DATE: 03/30/[address] Miller Pizarro to Dr. Sada Abad . I was called for GI consultation by the admitting medical team. The patient is seen and fully examin ed on 03/30/2017 for GI consultation as requested by Dr. Raghavendra Abad. The entire chart is reviewed, incl uding but not limited to the most recent lab and radiology study results, current and previous medica tion list, current and the previous medical events, allergy to medication list as well as all the chuck ilable current and the previous medical records. Case discussed with the staff at length at the time of my GI consultation on 03/30/2017. HISTORY OF PRESENT ILLNESS: This is a 47-year-old old female who was admitted to the hospital throug h the Emergency Room with a complaint of severe crampy abdominal pain, nausea and vomiting with profu se diarrhea for the last 2-3 days prior to her admission, but no reported chest pain or palpitation, no complaint of shortness of breath, chills or fever at that time. No reported active bleeding. LABORATORY DATA: After being admitted to the hospital, initial blood workup showed low hemoglobin of 9.9 with hematocrit 33.3 with mild increase of blood glucose level to 106 with low CO2 content of 16 indicative of but not confirmative of severe metabolic acidosis with low potassium 3.5. PAST MEDICAL HISTORY: Including but not limited to: 1. Peptic ulcer disease. 2. Status post . 3. Severe anxiety syndrome. FAMILY HISTORY: Unknown. SOCIAL HISTORY: Denied any known history of cigarette smoking or alcohol intake. ALLERGIES TO MEDICATION: Unclear. PHYSICAL EXAMINATION: GENERAL: A 47-year-old female, appears to be somewhat anxious, restless mildly. VITAL SIGNS: Afebrile with pulse of 96, respiratory rate 20-22 with blood pressure 116/72. HEENT: Showed dry, mildly pale oral mucoid membrane, nonicteric sclerae. LYMPH NODES: No lymphadenitis or lymphadenopathy. LUNGS: Few scattered crepitation with decreased air entry at bases. HEART: Positive S1 and S2. ABDOMEN: Soft. Bowel sounds are present. No mass or organomegaly. No rebound tenderness or guardi ng, but diffuse tenderness and mild distention. RECTAL: The patient refused. EXTREMITIES: Without significant clubbing, cyanosis or edema. NEUROLOGIC: No reported new neurological deficit, sensory or motor. The patient appears to be awak e, alert, oriented. IMPRESSION: 1. Peptic ulcer disease with recurrent nausea and vomiting, to rule out gastric versus duodenal ulce r versus partial gastric outlet obstruction, less likely. 2. of acute pancreatitis to be ruled in or out. 3. Diarrhea, infectious versus mechanical. 4. Anemia with possible gastrointestinal blood loss, upper versus lower, to rule out occult gastroin testinal malignancy. 5. Metabolic acidosis secondary to above. 6. Known history of status post section. SUGGESTION: 1. Agree with your plan. 2. Rehydration. 3. Cancer markers including CEA and CA 19-9 as well as CA-125. 4. Complete stool analysis. 5. Proton pump inhibitors IV. 6. Reglan IV. 7. Flagyl IV in the meantime. 8. Endoscopic evaluation of the GI tract hemoglobin and hematocrit. 9. Reglan IV. 8. Further recommendations to follow, including serum lipase, amylase level as well as sectional abd ominal and pelvic CAT scan, which was done and suggestive of pancolitis. Thank you for letting me participate in your patient's case management. Miller Pizarro MD cc: [id number] TT: 04/03/2017 23:35:29 Confirmation # [id number] Dictation # [id number] ln
--- NOTE | 2017-04-07 13:51 | DS ---
The patient admitted to the hospital with chief complaint of nausea, vomiting, diarrhea, fever. The patient . The patient placed on bedrest, IV fluid, antibiotics, endoscopy, colonoscopy. The pa tient showed gradual improvement. Discharged to be followed as outpatient. DIAGNOSIS: Severe gastroenteritis. Sada Abad MD cc: [id number] TT: 04/07/2017 10:42:21 en
== END 2017-04-01 18:45 | disposition home or self-care (01) | DRG 179 ==
LOC: C.ER 19:20 → C.9E 23:26 → C.3T 23:48
PROVIDERS: ADMIT Internal Medicine Pulmonary Disease; ATTEND Internal Medicine Pulmonary Disease
PROC: 0DB68ZX Excision of Stomach, Via Natural or Artificial Opening Endoscopic, Diagnostic (ICD-10-PCS; principal; 2017-03-31 10:53)
PROC: 0DBN8ZX Excision of Sigmoid Colon, Via Natural or Artificial Opening Endoscopic, Diagnostic (ICD-10-PCS; 2017-04-01)
DX: K51.00 Ulcerative (chronic) pancolitis without complications (principal); E87.2 Acidosis; E87.6 Hypokalemia; D50.0 Iron deficiency anemia secondary to blood loss (chronic); K52.9 Noninfective gastroenteritis and colitis, unspecified; K29.00 Acute gastritis without bleeding; K44.9 Diaphragmatic hernia without obstruction or gangrene; K27.9 Peptic ulcer, site unspecified, unspecified as acute or chronic, without hemorrhage or perforation; F41.9 Anxiety disorder, unspecified; K64.8 Other hemorrhoids

== ENCOUNTER 2017-08-07 14:17 | Emergency (ER) | payer MEDICAID ==
[2017-08-07 14:35] VITALS: BP 141/79; PULSE 87; RESP 16; TEMP 98.1; O2SAT 99
[2017-08-07] MEDS ORDERED: Naproxen 550 mg Tab PO STA (14:57)
[2017-08-07] MEDS ORDERED: Naproxen 550 mg Tab PO ONE ×2 (15:06→15:08)
--- NOTE | 2017-08-07 15:54 | C.PDOC ---
History Of Present Illness 47 yr old female presents to the ER with complaints of right sided neck pain for the past 1 month. Patient describes it as stiffness and states the pain is made worse with movement. Patient denies trauma, vision changes, chest pain, SOB , nausea, vomiting, back pain, weakness or numbness. Time Seen by Provider: 08/07/17 14:47 Chief Complaint (Nursing): Back Pain History Per: Patient Onset/Duration Of Symptoms: Persistent (1 month) Current Symptoms Are (Timing): Still Present Past Medical History Reviewed: Historical Data, Nursing Documentation, Vital Signs Vital Signs: Last Vital Signs Temp 98.1 F 08/07/17 14:32 Pulse 87 08/07/17 14:32 Resp 16 08/07/17 14:32 BP 141/79 08/07/17 14:32 Pulse Ox 99 08/07/17 16:06 Surgical History: - [facility] Procedures EXCISION OF SIGMOID COLON, ENDO, DIAGN (03/28/17) EXCISION OF STOMACH, ENDO, DIAGN (03/28/17) Family History: States: No Known Family Hx - Social History Hx Tobacco Use: No Hx Alcohol Use: No Hx Substance Use: No - Immunization History Hx Tetanus Toxoid Vaccination: No Hx Influenza Vaccination: No Hx Pneumococcal Vaccination: No Review Of Systems Except As Marked, All Systems Reviewed And Found Negative. Eyes: Negative for: Vision Change Cardiovascular: Negative for: Chest Pain Respiratory: Negative for: Shortness of Breath Gastrointestinal: Negative for: Nausea, Vomiting Musculoskeletal: Positive for: Neck Pain (Right sided neck pain). Negative for : Back Pain Neurological: Negative for: Weakness, Numbness Physical Exam - Physical Exam Appears: Non-toxic, No Acute Distress Skin: Warm, Dry, No Rash Head: Atraumatic, Normacephalic Eye(s): bilateral: Normal Inspection, PERRL, EOMI Ear(s): Bilateral: Normal Oral Mucosa: Moist Throat: No Erythema, No Exudate Neck: Normal ROM, No Midline Cervical Tenderness, Paracervical Tenderness ( Right sided), Supple, Other ((+) Pain ilicited with movement of neck, RIGHT> LEFT.) Lymphatic: Normal Exam Chest: Symmetrical, No Tenderness Cardiovascular: Rhythm Regular, No Friction Rub, No Murmur Respiratory: Normal Breath Sounds, No Rales, No Rhonchi, No Stridor, No Wheezing Back: No CVA Tenderness, No Vertebral Tenderness, No Paraspinal Tenderness Extremity: Normal ROM, No Tenderness, No Swelling Neurological/Psych: Oriented x3, Normal Speech, Normal Motor, Normal Sensation Gait: Steady ED Course And Treatment O2 Sat by Pulse Oximetry: 99 (RA) Pulse Ox Interpretation: Normal Medical Decision Making Medical Decision Making: PLAN: * Naproxen PO * Flexeril PO On re-exam, the patient reports the improvement of symptoms. Lungs are CTA, Lungs are CTA, Abdomen is soft, non-tender and patient is tolerating PO well. Patient is ambulatory in the ED with the steady gait. Follow up with the medical doctor within 1-2 days. Return if worsened. Disposition - Disposition Referrals: Jami Orellana MD [Medical Doctor] - Disposition: HOME/ ROUTINE Disposition Time: 15:54 Condition: GOOD Additional Instructions: Follow up with the medical doctor within 1-2 days. Return if worsened. 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 - Scribe Statement The provider has reviewed the documentation as recorded by the Scribe Pina Stringer All medical record entries made by the Tonyibanibal were at my direction and personally dictated by me. I have reviewed the chart and agree that the record accurately reflects my personal performance of the history, physical exam, medical decision making, and the department course for this patient. I have also personally directed, reviewed, and agree with the discharge instructions and disposition.
== END 2017-08-07 16:27 | disposition home or self-care (01) ==
LOC: C.ER 14:17
DX: M43.6 Torticollis (principal)

== ENCOUNTER 2017-12-31 14:21 | Emergency (ER) | payer MEDICAID, OTHER ==
[2017-12-31 14:35] VITALS: BP 130/78; PULSE 101; TEMP 97.9; O2SAT 99
[2017-12-31] MEDS ORDERED: guaiFENesin 100 mg/5 ml Syrup UD PO STA (14:43)
--- NOTE | 2017-12-31 14:44 | C.PDOC ---
History Of Present Illness 24 y/o female presents to the ED for evaluation of a dry, non-productive cough which began 3 weeks ago. Patient reports occasional scant blood tinging. She has been taking DayQuil and NyQuil occasionally without significant relief. She is requesting a work note and denies fever, chills, shortness of breath, and chest pain at this time. Time Seen by Provider: 12/31/17 14:36 Chief Complaint (Nursing): Cough, Cold, Congestion History Per: Patient History/Exam Limitations: no limitations Onset/Duration Of Symptoms: Other (3 weeks ) Current Symptoms Are (Timing): Still Present Associated Symptoms: Cough. denies: Fever, Chills, Sputum Additional History Per: Patient Past Medical History Reviewed: Historical Data, Nursing Documentation, Vital Signs Vital Signs: Last Vital Signs Temp 97.9 F 12/31/17 14:31 Pulse 101 H 12/31/17 14:31 Resp 18 12/31/17 15:10 BP 130/78 12/31/17 14:31 Pulse Ox 99 12/31/17 19:22 - Medical History PMH: Anemia Surgical History: - [facility] Procedures EXCISION OF SIGMOID COLON, ENDO, DIAGN (03/28/17) EXCISION OF STOMACH, ENDO, DIAGN (03/28/17) Family History: States: Unknown Family Hx - Social History Hx Tobacco Use: No Hx Alcohol Use: No Hx Substance Use: No - Immunization History Hx Tetanus Toxoid Vaccination: No Hx Influenza Vaccination: No Hx Pneumococcal Vaccination: No Review Of Systems Constitutional: Negative for: Fever, Chills Cardiovascular: Negative for: Chest Pain Respiratory: Positive for: Cough. Negative for: Shortness of Breath, Sputum Physical Exam - Physical Exam Appears: Non-toxic, No Acute Distress Skin: Normal Color, Warm, Dry Head: Atraumatic, Normacephalic Eye(s): bilateral: Normal Inspection Ear(s): Bilateral: Normal Nose: Normal, No Discharge Oral Mucosa: Moist Throat: Normal, No Erythema, No Exudate Neck: Supple Chest: Symmetrical, No Deformity, No Tenderness Cardiovascular: Rhythm Regular, No Murmur Respiratory: Normal Breath Sounds, No Rales, No Rhonchi, No Wheezing Extremity: Normal ROM, Capillary Refill (less than 2 seconds ) Neurological/Psych: Oriented x3, Normal Speech, Normal Cognition Gait: Steady ED Course And Treatment O2 Sat by Pulse Oximetry: 99 (on RA) Pulse Ox Interpretation: Normal Progress Note: Motrin PO and Robitussin PO administered. Medical Decision Making Medical Decision Making: mild resolving flu vs viral syndrome cough, scant blood tinged (NOT copious) and needs worknote. lungs clear, otherwise normal exam. Dayquil/Nyquil edcuated. defers w/u with informed consent. Disposition Doctor Will See Patient In The: Office Counseled Patient/Family Regarding: Studies Performed, Diagnosis - Disposition Referrals: [facility] [Outside] Disposition: HOME/ ROUTINE Disposition Time: 14:44 Condition: GOOD Additional Instructions: continue Dayquil and Nyquil liberally as educated- Cool mist humidifier @night as able. Instructions: Viral Syndrome (ED) Forms: [facility] ([place]), Work Excuse - Clinical Impression Clinical Impression: Influenza-like illness - Scribe Statement The provider has reviewed the documentation as recorded by the Scribe (Maribel Holm) Provider Attestation: All medical record entries made by the Scribe were at my direction and personally dictated by me. I have reviewed the chart and agree that the record accurately reflects my personal performance of the history, physical exam, medical decision making, and the department course for this patient. I have also personally directed, reviewed, and agree with the discharge instructions and disposition.
[2017-12-31] MEDS ORDERED: guaiFENesin 100 mg/5 ml Syrup UD ONE (15:05)
[2017-12-31 15:12] VITALS: RESP 18
== END 2017-12-31 15:12 | disposition home or self-care (01) ==
LOC: C.ER 14:21
DX: J11.1 Influenza due to unidentified influenza virus with other respiratory manifestations (principal)

== ENCOUNTER 2018-01-11 13:48 | Emergency (ER) | payer MEDICAID, OTHER ==
[2018-01-11 14:05] VITALS: PULSE 74; RESP 18; O2SAT 100
[2018-01-11] MEDS ORDERED: Sodium Chloride 0.9% 1,000 ML IV ONE (17:09)
--- NOTE | 2018-01-11 17:12 | C.PDOC ---
History Of Present Illness 47-year-old female, presents to the emergency department with complaints of multiple episodes of non-bloody/watery diarrhea and one episode of non-bloody/ non-bilious vomiting today. Patient notes mild associated abdominal cramping and chills. Patient notes that her son was recently sick with GI symptoms. Denies fever, cough, sore throat, runny nose, dysuria, or any other associated symptoms. No other complaints at this time. Time Seen by Provider: 01/11/18 16:50 Chief Complaint (Nursing): Abdominal Pain History Per: Patient History/Exam Limitations: no limitations Onset/Duration Of Symptoms: Days Current Symptoms Are (Timing): Still Present Severity: Moderate Past Medical History Reviewed: Historical Data, Nursing Documentation, Vital Signs Vital Signs: Last Vital Signs Temp 97.9 F 01/11/18 14:02 Pulse 74 01/11/18 14:02 Resp 18 01/11/18 14:02 BP 136/76 01/11/18 14:02 Pulse Ox 100 01/11/18 17:50 - Medical History PMH: Anemia Surgical History: - [facility] Procedures EXCISION OF SIGMOID COLON, ENDO, DIAGN (03/28/17) EXCISION OF STOMACH, ENDO, DIAGN (03/28/17) Family History: States: No Known Family Hx - Social History Hx Tobacco Use: No Hx Alcohol Use: No Hx Substance Use: No - Immunization History Hx Tetanus Toxoid Vaccination: No Hx Influenza Vaccination: Yes Hx Pneumococcal Vaccination: No Review Of Systems Except As Marked, All Systems Reviewed And Found Negative. Constitutional: Negative for: Fever, Chills, Weakness Cardiovascular: Negative for: Chest Pain Respiratory: Negative for: Cough, Shortness of Breath Gastrointestinal: Positive for: Nausea, Vomiting, Abdominal Pain, Diarrhea Genitourinary: Negative for: Dysuria Musculoskeletal: Negative for: Back Pain Neurological: Negative for: Weakness, Numbness, Headache, Dizziness Physical Exam - Physical Exam Appears: Non-toxic, No Acute Distress Skin: Normal Color, Warm, Dry, No Rash Head: Normacephalic Eye(s): bilateral: Normal Inspection, PERRL Nose: Normal Oral Mucosa: Moist Lips: Normal Appearing Neck: Normal ROM Chest: Symmetrical Cardiovascular: Rhythm Regular, No Murmur Respiratory: Normal Breath Sounds, No Accessory Muscle Use Gastrointestinal/Abdominal: Soft, Tenderness (Mild, diffuse), No Guarding, No Rebound Extremity: Normal ROM Neurological/Psych: Oriented x3, Normal Speech ED Course And Treatment - Laboratory Results Result Diagrams: 01/11/18 17:45 01/11/18 17:45 O2 Sat by Pulse Oximetry: 100 (RA) Pulse Ox Interpretation: Normal Progress Note: Labs and UA ordered and reviewed. Patient treated with Bentyl and IVFs. Disposition Counseled Patient/Family Regarding: Studies Performed, Diagnosis, Need For Followup, Rx Given - Disposition Referrals: Jami Orellana MD [Medical Doctor] - Disposition: HOME/ ROUTINE Disposition Time: 18:55 Condition: STABLE Additional Instructions: FOLLOW UP WITH YOUR DOCTOR IN 1-2 DAYS DRINK PLENTY OF CLEAR FLUIDS USE MEDICATION NEEDED RETURN TO ER IF SYMPTOMS WORSEN Prescriptions: Dicyclomine [Bentyl] 20 mg PO Q6 PRN #15 tab PRN Reason: ABDOMINAL CRAMPING Instructions: Viral Gastroenteritis Forms: [facility] (Korean) Print Language: FINNISH - POA Present On Arrival: None - Clinical Impression Clinical Impression: Diarrhea, Viral gastroenteritis - Scribe Statement The provider has reviewed the documentation as recorded by the Scribe (Shabnam Jiang) All medical record entries made by the Scribe were at my direction and personally dictated by me. I have reviewed the chart and agree that the record accurately reflects my personal performance of the history, physical exam, medical decision making, and the department course for this patient. I have also personally directed, reviewed, and agree with the discharge instructions and disposition.
[2018-01-11 17:50] LABS: BASO % 0.3 % (0.0-2.0); EOS % 0.3 % (0.0-4.0); HEMOGLOBIN 11.2 g/dL (11.0-16.0); LYMPH % 13.3 % (20.0-40.0); MEAN CORPUSCULAR HEMOGLOBIN 20.5 pg (27.0-31.0); MONO # 0.4 K/uL (0.0-0.8); MONO % 5.6 % (0.0-10.0); NEUT # 5.8 K/uL (1.8-7.0); NEUT % 80.5 % (50.0-75.0); RBC 5.46 Mil/uL (3.80-5.20); RED CELL DISTRIBUTION WIDTH 22.6 % (11.5-14.5); WHITE BLOOD COUNT 7.3 K/uL (4.8-10.8)
[2018-01-11 17:53] LABS: MEAN CELL VOLUME 66.2 fL (81.0-99.0)
[2018-01-11 18:04] LABS: ALB/GLOB RATIO 1.1 (1.0-2.1); ALBUMIN 4.3 g/dL (3.5-5.0); ALT/SGPT 19 U/L (9-52); AST/SGOT 22 U/L (14-36); BLOOD UREA NITROGEN 11 mg/dL (7-17); CALCIUM 9.1 mg/dl (8.6-10.4); GFR AFRICAN-AMERICAN > 60; GFR NON-AFRICAN AMERICAN > 60; LIPASE 99 U/L (23-300)
[2018-01-11 19:20] VITALS: BP 112/72; TEMP 99.3
== END 2018-01-11 19:21 | disposition home or self-care (01) ==
LOC: C.ER 13:48
DX: A08.4 Viral intestinal infection, unspecified (principal)
CPT/HCPCS: 80053; 83690; 85025; 96360; 99285; J7040

== ENCOUNTER 2018-03-15 11:52 | Emergency (ER) | payer MEDICAID, OTHER ==
[2018-03-15 12:25] VITALS: BP 109/72; PULSE 72; RESP 18; TEMP 97.9; O2SAT 98
--- NOTE | 2018-03-15 12:50 | C.PDOC ---
History Of Present Illness 48 y/o female presents to the ED with c/o runny nose, sinus congestion, and scratchy throat x 1 week. Patient has history of seasonal allergies, but states symptoms "usually goes away after several days." she denies fever, chills, shortness of breath and cough. RUNNY NOSE, SINUS ALIRIO, SCRATCHY THROAT X 1 WEEK. HO SEASONAL ALLERGIES "BUT USUALLY GOES AWAY AFTER SEV DAYS". NO FEVER, SOB, COUGH. EXAM NARD SINUS ALIRIO, CLEAR RHINORRHEA; THROAT CLEAR; LUNGS CTA B/L NO W/R/R Time Seen by Provider: 03/15/18 12:33 Chief Complaint (Nursing): Cough, Cold, Congestion History Per: Patient History/Exam Limitations: no limitations Onset/Duration Of Symptoms: Other (1 week) Current Symptoms Are (Timing): Still Present Location Of Pain: Throat, Sinus/es Associated Symptoms: Sore Throat. denies: Fever, Chills, Cough Additional History Per: Patient Past Medical History Reviewed: Historical Data, Nursing Documentation, Vital Signs Vital Signs: Last Vital Signs Temp 97.9 F 03/15/18 12:21 Pulse 72 03/15/18 12:21 Resp 18 03/15/18 12:21 BP 109/72 03/15/18 12:21 Pulse Ox 98 03/15/18 12:50 - Medical History PMH: Anemia Surgical History: - [facility] Procedures EXCISION OF SIGMOID COLON, ENDO, DIAGN (03/28/17) EXCISION OF STOMACH, ENDO, DIAGN (03/28/17) Family History: States: Unknown Family Hx - Social History Hx Tobacco Use: No Hx Alcohol Use: No Hx Substance Use: No - Immunization History Hx Tetanus Toxoid Vaccination: No Hx Influenza Vaccination: Yes Hx Pneumococcal Vaccination: No Review Of Systems Constitutional: Negative for: Fever, Chills ENT: Positive for: Nose Discharge, Throat Pain, Other (sinus congestion ) Respiratory: Negative for: Cough, Shortness of Breath Physical Exam - Physical Exam Appears: Non-toxic, Other (no acute respiratory distress ) Skin: Normal Color, Warm, Dry Head: Atraumatic, Normacephalic Eye(s): bilateral: Normal Inspection Ear(s): Bilateral: Normal Nose: Discharge (clear ), Other (sinus congestion ) Oral Mucosa: Moist Throat: Normal, No Erythema, No Exudate Chest: Symmetrical, No Deformity, No Tenderness Cardiovascular: Rhythm Regular, No Murmur Respiratory: Normal Breath Sounds, No Rales, No Rhonchi, No Wheezing, Other ( clear to auscultation bilaterally ) Extremity: Normal ROM, Capillary Refill (less than 2 seconds ) Neurological/Psych: Oriented x3, Normal Speech, Normal Cognition ED Course And Treatment O2 Sat by Pulse Oximetry: 98 (on RA) Pulse Ox Interpretation: Normal Progress Note: Decadron IM administered. Disposition Counseled Patient/Family Regarding: Diagnosis, Need For Followup - Disposition Referrals: YOUR,PMD [Other] Disposition: HOME/ ROUTINE Disposition Time: 12:48 Condition: IMPROVED Additional Instructions: TAKE CLARITIN-D DIRECTED. Instructions: Seasonal Allergies in Adults Forms: [facility] (Croatian), Work Excuse - Clinical Impression Clinical Impression: Sore throat, Rhinorrhea, Sinusitis - Scribe Statement The provider has reviewed the documentation as recorded by the Scribe (Maribel Holm) Provider Attestation: All medical record entries made by the Scribe were at my direction and personally dictated by me. I have reviewed the chart and agree that the record accurately reflects my personal performance of the history, physical exam, medical decision making, and the department course for this patient. I have also personally directed, reviewed, and agree with the discharge instructions and disposition.
== END 2018-03-15 13:01 | disposition home or self-care (01) ==
LOC: C.ER 11:52
DX: J32.9 Chronic sinusitis, unspecified (principal); J34.89 Other specified disorders of nose and nasal sinuses; J02.9 Acute pharyngitis, unspecified
CPT/HCPCS: 99283; J8540

== ENCOUNTER 2018-03-24 14:01 | Emergency (ER) | payer MEDICAID ==
[2018-03-24 14:12] VITALS: O2SAT 98
[2018-03-24] MEDS ORDERED: Albuterol 0.083% Inhal Sol (2.5 mg/3 mL) UD ONE ×2 (15:19→16:08)
[2018-03-24] MEDS ORDERED: Albuterol-Ipratrop 3 mg / 0.5 (3 ml) UD ONE (15:19)
[2018-03-24] MEDS: Albuterol 0.083% Inhal Sol (2.5 mg/3 mL) UD INH STA (15:20)
[2018-03-24] MEDS: Albuterol-Ipratrop 3 mg / 0.5 (3 ml) UD IH STA (15:20)
--- NOTE | 2018-03-24 16:10 | RAD ---
HISTORY: cough/wheezing COMPARISON: Chest radiograph dated 07/22/2016. TECHNIQUE: Chest PA and lateral FINDINGS: LUNGS: No active pulmonary disease. PLEURA: No significant pleural effusion identified. No pneumothorax apparent. CARDIOVASCULAR: Mediastinal silhouette stably prominent. OSSEOUS STRUCTURES: Inch. VISUALIZED UPPER ABDOMEN: Normal. OTHER FINDINGS: None. IMPRESSION: No active disease.
[2018-03-24 16:12] VITALS: BP 100/64; PULSE 81; RESP 18; TEMP 99.2
--- NOTE | 2018-03-24 16:15 | C.PDOC ---
History Of Present Illness 48 y/o female presents to the ED complaining of persistent congestion and dry cough. Seen here on 03/15 and told she has seasonal allergies and was prescribed Claritin. Patient reports taking it w/o relief. Today patient began feeling worse and tried to see her PMD but could not get an appointment so she came here. Time Seen by Provider: 03/24/18 14:15 Chief Complaint (Nursing): Cough, Cold, Congestion History Per: Patient History/Exam Limitations: no limitations Onset/Duration Of Symptoms: Days Current Symptoms Are (Timing): Still Present Past Medical History Reviewed: Historical Data, Nursing Documentation, Vital Signs Vital Signs: Last Vital Signs Temp 99.2 F 03/24/18 16:12 Pulse 81 03/24/18 16:12 Resp 18 03/24/18 16:12 BP 100/64 03/24/18 16:12 Pulse Ox 98 03/24/18 16:17 - Medical History PMH: Anemia Surgical History: - [facility] Procedures EXCISION OF SIGMOID COLON, ENDO, DIAGN (03/28/17) EXCISION OF STOMACH, ENDO, DIAGN (03/28/17) Family History: States: Unknown Family Hx - Social History Hx Tobacco Use: No Hx Alcohol Use: No Hx Substance Use: No - Immunization History Hx Tetanus Toxoid Vaccination: No Hx Influenza Vaccination: Yes Hx Pneumococcal Vaccination: No Review Of Systems Except As Marked, All Systems Reviewed And Found Negative. Constitutional: Negative for: Fever, Chills ENT: Positive for: Nose Congestion Cardiovascular: Negative for: Chest Pain Respiratory: Positive for: Cough. Negative for: Shortness of Breath Gastrointestinal: Negative for: Nausea, Vomiting Physical Exam - Physical Exam Appears: Non-toxic, No Acute Distress Skin: Normal Color, Warm, Dry Head: Atraumatic, Normacephalic Eye(s): bilateral: Normal Inspection, PERRL, EOMI Nose: Discharge (clear nasal discharge noted) Oral Mucosa: Moist Throat: Normal, No Erythema, No Exudate Neck: Normal ROM, Supple Chest: Symmetrical Cardiovascular: Rhythm Regular, No Murmur Respiratory: No Rales, No Rhonchi, Wheezing (bilaterally) Extremity: Bilateral: Atraumatic, Normal Color And Temperature, Normal ROM Neurological/Psych: Oriented x3, Normal Speech ED Course And Treatment O2 Sat by Pulse Oximetry: 98 (RA) Pulse Ox Interpretation: Normal - Radiology CXR: Viewed By Me, Read By Radiologist CXR Interpretation: Yes: No Acute Disease - Other Rad CXR X-Ray: Viewed By Me, Read By Radiologist Interpretation: Accession No. : [id number]. Patient Name / ID : TALON CAMARGO / [id number]. Exam Date : 03/24/2018 15:41:33 ( Approved ). Study Comment : Sex / Age : F / 48Y. Creator : Joshua Cabezas MD. Dictator : Joshua Cabezas MD. Child Care Sitter : Hog Grader : Joshua Cabezas MD. Approver2 : Report Date : 03/24/2018 16:09:14. My Comment : . HISTORY: cough/wheezing. COMPARISON: Chest radiograph dated 07/22/2016. TECHNIQUE: Chest PA and lateral. FINDINGS: LUNGS: No active pulmonary disease. PLEURA: No significant pleural effusion identified. No pneumothorax apparent. CARDIOVASCULAR: Mediastinal silhouette stably prominent. OSSEOUS STRUCTURES: Inch. VISUALIZED UPPER ABDOMEN: Normal. OTHER FINDINGS: None. IMPRESSION: No active disease. Progress Note: CXR ordered. Nebulizer treatments and PO prednisone given. On re- evaluation patient feels better and is stable to be d/c home with PMD follow up. Disposition - Disposition Referrals: Jami Orellana MD [Medical Doctor] - Disposition: HOME/ ROUTINE Disposition Time: 16:29 Condition: STABLE Additional Instructions: Follow up with your PMD within 1-2 days. Return to ED if feel worse. Prescriptions: Fexofenadine HCl [SheritaNf] 180 mg PO DAILY #20 tab Fluticasone Nasal [Flonase] 1 spr NS BID #1 spr predniSONE [predniSONE Tab] 2 tab PO DAILY #8 tab Albuterol Sulfate [Proair Hfa] 1 puff IH Q6 PRN #1 inh PRN Reason: Cough Promethazine HCl/Codeine [Prometh-Codein 6.25-10 mg/5 ml] 5 ml PO .Q4-6H #150 ml Instructions: Cough in Adults Forms: [facility] (Polish) - Clinical Impression Clinical Impression: Cough - PA / CRYSTAL GRINDER / Resident Statement MD/DO has reviewed & agrees with the documentation as recorded. - Scribe Statement The provider has reviewed the documentation as recorded by the Scribe (Alta Thomas) All medical record entries made by the Scribe were at my direction and personally dictated by me. I have reviewed the chart and agree that the record accurately reflects my personal performance of the history, physical exam, medical decision making, and the department course for this patient. I have also personally directed, reviewed, and agree with the discharge instructions and disposition.
== END 2018-03-24 16:45 | disposition home or self-care (01) ==
LOC: C.ER 14:01
DX: R05 Cough (principal)

== ENCOUNTER 2018-10-20 15:21 | Emergency (ER) | payer MEDICAID ==
[2018-10-20 15:29] VITALS: BP 119/75; PULSE 67; TEMP 97.6; O2SAT 100
[2018-10-20 15:59] LABS: HCG,QUALITATIVE URINE NEGATIVE (NEGATIVE)
[2018-10-20 16:03] LABS: SQUAMOUS EPITHIAL 3 /hpf (0-5); URINE BACTERIA RARE (<OCC); URINE BILIRUBIN NEGATIVE (NEGATIVE); URINE BLOOD 1+ (NEGATIVE); URINE CLARITY Hazy (Clear); URINE COLOR Yellow (YELLOW); URINE GLUCOSE (UA) NORMAL (Normal); URINE LEUKOCYTE ESTERASE 3+ Leu/uL (Negative); URINE PROTEIN 1+ mg/dL (NEGATIVE); URINE UROBILINOGEN NORMAL mg/dL (0.2-1.0); WBC CLUMPS OCC /hpf
--- NOTE | 2018-10-20 16:18 | C.PDOC ---
Time Seen by Provider: 10/20/18 16:13 Chief Complaint (Nursing): Female Genitourinary History Per: Patient History/Exam Limitations: no limitations Onset/Duration Of Symptoms: Days Current Symptoms Are (Timing): Still Present Severity: Moderate Quality Of Discomfort: Burning Associated Symptoms: Urinary Symptoms. denies: Fever, Chills, Nausea, Vomiting, Diarrhea, Back Pain Additional History Per: Patient Abnormal Vaginal Bleeding: No Past Medical History Vital Signs: Last Vital Signs Temp 97.6 F 10/20/18 15:28 Pulse 67 10/20/18 15:28 Resp 20 10/20/18 15:28 BP 119/75 10/20/18 15:28 Pulse Ox 100 10/20/18 15:28 - Medical History PMH: Anemia Surgical History: - [facility] Procedures EXCISION OF SIGMOID COLON, ENDO, DIAGN (03/28/17) EXCISION OF STOMACH, ENDO, DIAGN (03/28/17) Family History: States: CAD, Diabetes, Hypertension - Social History Hx Tobacco Use: No Hx Alcohol Use: No Hx Substance Use: No - Immunization History Hx Tetanus Toxoid Vaccination: No Hx Influenza Vaccination: Yes Hx Pneumococcal Vaccination: No Review Of Systems Constitutional: Negative for: Fever, Chills Gastrointestinal: Negative for: Nausea, Vomiting, Abdominal Pain, Diarrhea, Constipation Genitourinary: Positive for: Dysuria, Frequency. Negative for: Incontinence, Hematuria, Vaginal Discharge, Vaginal Bleeding, Pelvic Pain ED Course And Treatment O2 Sat by Pulse Oximetry: 100 Disposition - Disposition Referrals: Jami Orellana MD [Medical Doctor] - Disposition: HOME/ ROUTINE Disposition Time: 16:18 Condition: STABLE Additional Instructions: RAMAN HANLEY, thank you for letting us take care of you today. Your provider was Nile Kim MD and you were treated for UTI. The emergency medical care you received today was directed at your acute symptoms. If you were prescribed any medication, please fill it and take as directed. It may take several days for your symptoms to resolve. Return to the Emergency Department if your symptoms worsen, do not improve, or if you have any other problems. Please contact your doctor or call one of the physicians/clinics you have been referred to that are listed on the Patient Visit Information form that is included in your discharge packet. Bring any paperwork you were given at discharge with you along with any medications you are taking to your follow up visit. Our treatment cannot replace ongoing medical care by a primary care provider outside of the emergency department. Thank you for allowing the [facility] team to be part of your care today. Prescriptions: Nitrofurantoin Macrocrystals [Macrobid] 100 mg PO BID #14 cap Phenazopyridine HCl [Pyridium] 200 mg PO TID PRN #6 tablet PRN Reason: Pain, Moderate (4-7) Instructions: Urinary Tract Infection, Adult (DC) Forms: Work/School/Gym Excuse, [employer] [facility] (Syrian) - Clinical Impression Clinical Impression: UTI (urinary tract infection)
--- NOTE | 2018-10-20 16:32 | C.PDOC ---
History Of Present Illness Patient is a 48 year old Female with no significant PMHx who presents for 4 days of urinary burning and frequency. Patient says she often feels the urge to urinate even if she just emptied her bladder. Patient has not had a UTI in the past. Patient denies any vaginal pain, burning, discharge, or irregular bleeding. Patient denies any hematuria, abdominal pain, flank pain, fevers or chills. Patient has not been taking any medications for her symptoms. Patient was going to go to her PMD today for her symptoms, but was unable to get an appointment. Time Seen by Provider: 10/20/18 16:13 Chief Complaint (Nursing): Female Genitourinary History Per: Patient History/Exam Limitations: no limitations Onset/Duration Of Symptoms: Days Severity: Moderate Quality Of Discomfort: Burning Associated Symptoms: Urinary Symptoms. denies: Fever, Chills, Nausea, Vomiting, Diarrhea, Back Pain, Constipation Alleviating Factors: None Additional History Per: Patient Abnormal Vaginal Bleeding: No Past Medical History Vital Signs: Last Vital Signs Temp 97.6 F 10/20/18 15:28 Pulse 67 10/20/18 15:28 Resp 20 10/20/18 15:28 BP 119/75 10/20/18 15:28 Pulse Ox 100 10/20/18 16:29 - Medical History PMH: Anemia Surgical History: - [facility] Procedures EXCISION OF SIGMOID COLON, ENDO, DIAGN (03/28/17) EXCISION OF STOMACH, ENDO, DIAGN (03/28/17) Family History: States: CAD, Diabetes, Hypertension - Social History Hx Tobacco Use: No Hx Alcohol Use: No Hx Substance Use: No - Immunization History Hx Tetanus Toxoid Vaccination: No Hx Influenza Vaccination: Yes Hx Pneumococcal Vaccination: No Review Of Systems Constitutional: Negative for: Fever, Chills Genitourinary: Positive for: Dysuria, Frequency. Negative for: Incontinence, Hematuria, Vaginal Discharge, Vaginal Bleeding Physical Exam - Physical Exam Appears: Non-toxic, No Acute Distress Skin: Normal Color, Warm Cardiovascular: Rhythm Regular Respiratory: Normal Breath Sounds, No Rales, No Rhonchi, No Stridor, No Wheezing Gastrointestinal/Abdominal: Normal Exam, Bowel Sounds, Soft, No Tenderness Back: Normal Inspection, No CVA Tenderness Neurological/Psych: Oriented x3 ED Course And Treatment O2 Sat by Pulse Oximetry: 100 Medical Decision Making Medical Decision Making: Patient found to have positive urinalysis with 3+ leuk esterase and 316 wbcs. Plan: Patient discharged home with prescriptions for Macrobid and Pyridium. Disposition - Disposition Referrals: Jami Orellana MD [Medical Doctor] - Disposition: HOME/ ROUTINE Disposition Time: 16:25 Condition: STABLE Additional Instructions: RAMAN HANLEY, thank you for letting us take care of you today. Your provider was Nile Kim MD and you were treated for UTI. The emergency medical care you received today was directed at your acute symptoms. If you were prescribed any medication, please fill it and take as directed. It may take several days for your symptoms to resolve. Return to the Emergency Department if your symptoms worsen, do not improve, or if you have any other problems. Please contact your doctor or call one of the physicians/clinics you have been referred to that are listed on the Patient Visit Information form that is included in your discharge packet. Bring any paperwork you were given at discharge with you along with any medications you are taking to your follow up visit. Our treatment cannot replace ongoing medical care by a primary care provider outside of the emergency department. Thank you for allowing the [facility] team to be part of your care today. Prescriptions: Nitrofurantoin Macrocrystals [Macrobid] 100 mg PO BID #14 cap Phenazopyridine HCl [Pyridium] 200 mg PO TID PRN #6 tablet PRN Reason: Pain, Moderate (4-7) Instructions: Urinary Tract Infection, Adult (DC) Forms: Work/School/Gym Excuse, [employer] [facility] (Palauan) - Clinical Impression Clinical Impression: UTI (urinary tract infection) - PA / TOBACCO PRIZER / Resident Statement / has reviewed & agrees with the documentation as recorded. /DO has examined the patient and agrees with the treatment plan.
[2018-10-20 16:33] VITALS: RESP 18
== END 2018-10-20 16:33 | disposition home or self-care (01) ==
LOC: C.ER 15:21
DX: N39.0 Urinary tract infection, site not specified (principal)